=== PATIENT | male | born 1975 | race Two or more races ===

== ENCOUNTER 2023-10-12 09:05 | Inpatient (IN) | payer OTHER ==
[2023-10-12] VITALS (14 sets, daily range): BP systolic 130–165; BP diastolic 68–87; PULSE 68–91; RESP 16–18; TEMP 97.7–98.9; O2SAT 99
[~2023-10-12] VITALS: Ht 162.6 cm; Wt 65.5 kg
[2023-10-12 09:43] LABS: BASOPHILS % (AUTO) 0.8 % (0.0-2.0); EOSINOPHILS % (AUTO) 1.9 % (1.0-6.0); HEMOGLOBIN 9.9 g/dL (13.5-17.5); LYMPHOCYTES # (AUTO) 0.9 K/uL (1.0-4.8); LYMPHOCYTES % (AUTO) 19.6 % (22.0-44.0); MEAN CORPUSCULAR HEMOGLOBIN 31.6 pg (26.0-34.0); MEAN CORPUSCULAR VOLUME 99 fL (80-100); MONOCYTES # (AUTO) 0.5 K/uL (0.1-1.0); MONOCYTES % (AUTO) 10.7 % (2.0-9.0); NEUTROPHILS # (AUTO) 3.2 K/uL (1.8-7.7); PLATELET COUNT (AUTO) 127 K/uL (150-450); RED BLOOD CELL COUNT(AUTO) 3.15 MIL/uL (4.50-5.90); RED CELL DISTRIBUTION WIDTH 21.5 % (11.5-14.5); WHITE BLOOD COUNT (AUTO) 4.8 K/uL (4.5-11.0)
[2023-10-12 09:58] LABS: CALCIUM, TOTAL 9.6 mg/dL (8.8-10.5); CREATININE 10.19 mg/dL (0.60-1.30)
[2023-10-12 10:12] LABS: POTASSIUM 6.8 mmol/L (3.5-5.1)
[2023-10-12] MEDS: FOLIC ACID/VIT B COMPLEX AND C TABLET PO SCH (14:30)
[2023-10-12] MEDS: SEVELAMER CARBONATE 800 MG TABLET PO SCH (18:00)
[2023-10-12] MEDS ORDERED: ZOLPIDEM TARTRATE 5 MG TABLET PO PRN (18:30)
[2023-10-12] MEDS ORDERED: BISACODYL 10 MG RECTAL RECTAL SUPPOSITORY PR PRN (18:30)
[2023-10-12] MEDS ORDERED: ONDANSETRON HCL 4 MG/2 ML VIAL IVP PRN (18:30)
[2023-10-12] MEDS ORDERED: ALBUTEROL SULFATE 2.5 MG/0.5 ML NEB SOLUTION NEB PRN (18:30)
[2023-10-12] MEDS ORDERED: MAGNESIUM HYDROXIDE SUSPENSION 30 ML UDCUP PO PRN (18:30)
[2023-10-12] MEDS ORDERED: IPRATROPIUM BROMIDE 0.5 MG/2.5 ML NEB SOLUTION NEB PRN (18:30)
[2023-10-12] MEDS ORDERED: ACETAMINOPHEN 325 MG TABLET PO PRN (18:30)
[2023-10-12] MEDS ORDERED: LISI-894 PO (18:57)
[2023-10-12] MEDS ORDERED: SODI5POW3 PO (18:57)
[2023-10-12] MEDS ORDERED: MINOXIDIL PO (18:57)
[2023-10-12] MEDS ORDERED: ASPI-1450 PO (18:57)
[2023-10-12] MEDS ORDERED: CETI-450 PO (18:57)
[2023-10-12] MEDS ORDERED: CINA30 PO (18:57)
[2023-10-12] MEDS ORDERED: SEVE800T38 PO (18:57)
[2023-10-12] MEDS ORDERED: OMEP20 PO (18:57)
[2023-10-12] MEDS ORDERED: METO25 PO (18:57)
[2023-10-12] MEDS ORDERED: PRAV10TA39 PO (18:57)
[2023-10-12] MEDS: MINOXIDIL 10 MG TABLET PO SCH (21:11)
[2023-10-12] MEDS: METOPROLOL TARTRATE 25 MG TABLET PO SCH (21:11)
[2023-10-12] MEDS: PRAVASTATIN SODIUM 10 MG TABLET PO SCH (21:12)
[2023-10-12] MEDS: HEPARIN SODIUM,PORCINE 5,000 UNITS/ML VIAL SQ SCH (23:23)
[2023-10-13] VITALS: BP 146/80; PULSE 88; RESP 17; TEMP 98.9
[2023-10-13 04:00] VITALS: BP 163/85; PULSE 71; RESP 16; TEMP 98.6
[2023-10-13 08:00] VITALS: BP 160/89; PULSE 92; RESP 18; TEMP 98.1
[2023-10-13] MEDS: SEVELAMER CARBONATE 800 MG TABLET PO SCH (08:26)
[2023-10-13] MEDS: CINACALCET HCL 30 MG TABLET PO SCH (08:27)
[2023-10-13] MEDS: ASPIRIN 81 MG CHEWABLE TABLET PO SCH (08:28)
[2023-10-13] MEDS: LISINOPRIL 10 MG TABLET PO SCH (08:28)
[2023-10-13] MEDS: CETIRIZINE HCL 10 MG TABLET PO SCH (08:28)
[2023-10-13 12:07] VITALS: BP 167/90; PULSE 93; RESP 19; TEMP 98.2
[2023-10-13] MEDS ORDERED: ASPI-1444 PO (13:17)
[2023-10-13 15:51] VITALS: BP 159/90; PULSE 84; RESP 18; TEMP 98
[2023-10-14] MEDS ORDERED: SODIUM ZIRCONIUM CYCLOSILICATE 5 GM POWDER PACKET PO SCH (09:00)
== END 2023-10-13 19:35 | DRG 682 ==
LOC: EMS 09:11 → EDH 10:55 → 5S 12:42
PROVIDERS: ADMIT Hospitalist; ATTEND Hospitalist
PROC: 5A1D70Z Performance of Urinary Filtration, Intermittent, Less than 6 Hours Per Day (ICD-10-PCS; principal; 2023-10-12)
DX: I12.0 Hypertensive chronic kidney disease with stage 5 chronic kidney disease or end stage renal disease (principal); N18.6 End stage renal disease; E87.5 Hyperkalemia; H91.92 Unspecified hearing loss, left ear; Z99.2 Dependence on renal dialysis
CPT/HCPCS: 80048; 85025; 87081; 87340; 90935; 99285; J1644; Q9967